=== PATIENT | female | born 1960 | race Caucasian/White ===

== ENCOUNTER 2016-10-03 10:01 | Emergency (ER) | payer BC ==
[2016-10-03 11:16] VITALS: BP 144/90
[2016-10-03] MEDS ORDERED: Albuterol/Ipratropium NEB.SOL* Albuterol 2.5 MG/Ipratropium 0.5 MG 3 ML INH ONE (11:44)
--- NOTE | 2016-10-03 12:44 | RAD ---
INDICATION: Cough. Wheezing. COMPARISON: None TECHNIQUE: PA and lateral dual-energy views were obtained. FINDINGS: Bones/Soft Tissues: There are no acute bony findings. Cardiomediastinal: The cardiomediastinal silhouette is normal. Lungs: There are no infiltrates. Pleura: There are no pleural effusions. Other: None IMPRESSION: NO ACTIVE DISEASE.
--- NOTE | 2016-10-03 14:03 | UC ---
Throat Pain/Nasal Morgan HPI - HPI Summary HPI Summary: FIVE DAYS OF COUGH CONGESTION WHEEZING, SINUS PRESSURE. AND THREE DAYS AGO COLD SORE BROKE OUT ON LEFT UPPER LIP. - History of Current Complaint Chief Complaint: UCRespiratory Stated Complaint: COUGH Time Seen by Provider: 10/03/16 11:32 Hx Obtained From: Patient Hx Last Menstrual Period: Perimenopausal Onset/Duration: Gradual Onset, Lasting Days, Still Present Severity: Moderate Pain Intensity: 0 Pain Scale Used: 0-10 Numeric Cough: Productive Associated Signs & Symptoms: Positive: Wheezing, Hoarseness, Sinus Discomfort, Nasal Discharge, Fever, Rash - COLD SORE LEFT SUPERIOR LIP - Epiglottits Risk Factors Epiglottis Risk Factors: Negative - Allergies/Home Medications Allergies/Adverse Reactions: Allergies Allergy/AdvReac Type Severity Reaction Status Date / Time No Known Allergies Allergy Verified 10/03/16 11:16 PMH/Surg Hx/FS Hx/Imm Hx Previously Healthy: Yes Endocrine History Of: Denies: Diabetes, Thyroid Disease, Hyperthyroidism, Hypothyroidism, Dyslipidemia Cardiovascular History Of: Denies: Cardiac Disorders, Hypertension, Pacemaker/ICD, Myocardial Infarction , Congestive Heart Failure, Atrial Fibrillation, Deep Vein Thrombosis, Bleeding Disorders Respiratory History Of: Reports: Bronchitis Denies: COPD, Asthma, Pneumonia, Pulmonary Embolism GI/ History Of: Denies: Gastroesophageal Reflux, Ulcer, Gastrointestinal Bleed, Gall Bladder Disease, Kidney Stones, Diverticulitis, Renal Disease, Urosepsis Neurological History Of: Denies: TIA, CVA, Dementia, Seizures, Migraine Psychological History Of: Reports: Anxiety Denies: Depression, Bipolar Disorder, Schizophrenia, Post Traumatic Stress Disorder Cancer History Of: Denies: Lung Cancer, Colorectal Cancer, Breast Cancer, Prostate Cancer, Cervical Cancer Other History Of: Negative For: HIV, Hepatitis B, Hepatitis C, Anticoagulant Therapy - Surgical History Surgical History: Yes Surgery Procedure, Year, and Place: BREAST REDUCTION. back surgery - Family History Known Family History: Positive: Respiratory Disease - FATHER HAS ASTHMA Negative: Hypertension - Social History Occupation: Employed Full-time Lives: With Family Alcohol Use: Occasionally Substance Use Type: None Smoking Status (MU): Former Smoker Type: Cigarettes Length of Time of Smoking/Using Tobacco: 10 Have You Smoked in the Last Year: No - Immunization History Most Recent Influenza Vaccination: fall 2015 Most Recent Tetanus Shot: utd Review of Systems Constitutional: Chills Skin: Other - LEFT SUPERIOR LIP COLD SORE Eyes: Negative ENT: Nasal Discharge Respiratory: Cough Cardiovascular: Negative Gastrointestinal: Negative Genitourinary: Negative Motor: Negative Neurovascular: Negative Musculoskeletal: Negative Neurological: Negative Psychological: Negative All Other Systems Reviewed And Are Negative: Yes Physical Exam Triage Information Reviewed: Yes Appearance: Well-Appearing, No Pain Distress, Well-Nourished Vital Signs: Initial Vital Signs Temp 98.1 F 10/03/16 11:07 Pulse 84 10/03/16 11:07 Resp 20 10/03/16 11:07 BP 144/90 10/03/16 11:07 Pulse Ox 99 10/03/16 11:07 Vital Signs Reviewed: Yes Eye Exam: Normal Eyes: Positive: Conjunctiva Clear ENT Exam: Normal ENT: Positive: Normal ENT inspection, Hearing grossly normal, TMs normal Dental Exam: Normal Neck exam: Normal Respiratory Exam: Normal Respiratory: Positive: Chest non-tender, Lungs clear, Normal breath sounds, No respiratory distress, No accessory muscle use, Wheezing Cardiovascular Exam: Normal Cardiovascular: Positive: RRR, No Murmur, Pulses Normal, Brisk Capillary Refill Abdominal Exam: Normal Abdomen Description: Positive: Nontender, No Organomegaly Musculoskeletal Exam: Normal Neurological Exam: Normal Psychological Exam: Normal Skin Exam: Normal Throat Pain/Nasal Course/Dx - Differential Dx/Diagnosis Differential Diagnosis/HQI/PQRI: Otitis Media, Pharyngitis, Sinusitis, URI Provider Diagnoses: SINUSITIS. BRONCHITIS WITH BRONCHOSPASM. COLD SORE LEFT SUPERIOR LIP Discharge - Discharge Plan Condition: Stable Disposition: HOME Prescriptions: DOXYcycline CAP(*) [DOXYcycline 100MG CAP(*)] 100 mg PO BID #20 cap ValACYclovir (*) [Valtrex 500 mg (*)] 500 mg PO BID #6 tab predniSONE TAB* [Deltasone TAB*] 10 mg PO DAILY #28 tab Patient Education Materials: Sinusitis (ED), Acute Bronchitis (ED), Oral Herpes Simplex Virus Infections (ED), Bronchospasm (ED) Referrals: Marcia Mahajan NP [Primary Care Provider] -
== END 2016-10-03 13:11 | disposition home or self-care (01) ==
LOC: UCEAST 10:01
DX: J40 Bronchitis, not specified as acute or chronic (principal); J98.01 Acute bronchospasm; J32.9 Chronic sinusitis, unspecified; B00.1 Herpesviral vesicular dermatitis; R03.0 Elevated blood-pressure reading, without diagnosis of hypertension; Z87.891 Personal history of nicotine dependence; Z82.5 Family history of asthma and other chronic lower respiratory diseases
CPT/HCPCS: 71020; 99212; A9270-GY; G0463

== ENCOUNTER 2017-08-03 09:33 | Emergency (ER) | payer BC ==
[2017-08-03 09:50] VITALS: BP 122/100
--- NOTE | 2017-08-03 10:20 | UC ---
Respiratory Complaint HPI - HPI Summary HPI Summary: Patient presents with an unremarkable past medical history. She presents today with complaints of six day onset fatigue, malaise, body aches. Furthermore she states she has been in bed since Friday with increased coughing, chest congestion. She denies any recent travel, ill contacts. Denies chest pain, dyspena, abdominal pain, nausea, vomiting, rash or joint pain. - History of Current Complaint Chief Complaint: UCRespiratory Stated Complaint: CONGESTION Time Seen by Provider: 08/03/17 10:03 Hx Obtained From: Patient Hx Last Menstrual Period: Perimenopausal ?: No Onset/Duration: Sudden Onset, Lasting Days Timing: Constant Character: Cough: Nonproductive Aggravating Factors: Nothing Alleviating Factors: Spontaneous Resolution Associated Signs And Symptoms: Positive: URI, Nasal Congestion, Sinus Discomfort - Risk Factors Pulmonary Embolism Risk Factors: Negative Cardiac Risk Factors: Negative Pseudomonas Risk Factors: Negative Tuberculosis Risk Factors: Negative - Allergies/Home Medications Allergies/Adverse Reactions: Allergies Allergy/AdvReac Type Severity Reaction Status Date / Time No Known Allergies Allergy Verified 08/03/17 09:45 Home Medications: Home Medications metFORMIN* [Glucophage 500 MG TAB *] 08/03/17 [History] PMH/Surg Hx/FS Hx/Imm Hx Previously Healthy: Yes Other History Of: Negative For: HIV, Hepatitis B, Hepatitis C, Anticoagulant Therapy - Surgical History Surgical History: Yes Surgery Procedure, Year, and Place: BREAST REDUCTION. back surgery - Family History Known Family History: Positive: Respiratory Disease - FATHER HAS ASTHMA Negative: Hypertension - Social History Occupation: Employed Full-time Lives: Alone Alcohol Use: Occasionally Substance Use Type: None Smoking Status (MU): Former Smoker Type: Cigarettes Length of Time of Smoking/Using Tobacco: 10 Have You Smoked in the Last Year: No - Immunization History Most Recent Influenza Vaccination: fall 2015 Most Recent Tetanus Shot: utd Review of Systems Constitutional: Fatigue Skin: Negative Eyes: Negative ENT: Nasal Discharge, Sinus Congestion, Sinus Pain/Tenderness Respiratory: Cough Cardiovascular: Negative Gastrointestinal: Negative Genitourinary: Negative Motor: Negative Neurovascular: Negative Musculoskeletal: Negative Neurological: Negative Psychological: Negative Is Patient Immunocompromised?: No All Other Systems Reviewed And Are Negative: Yes Physical Exam Triage Information Reviewed: Yes Appearance: Ill-Appearing Vital Signs: Initial Vital Signs Temp 97.2 F 08/03/17 09:46 Pulse 75 08/03/17 09:46 Resp 16 08/03/17 09:46 BP 122/100 08/03/17 09:46 Pulse Ox 98 08/03/17 09:46 Vital Signs Reviewed: Yes Eye Exam: Normal ENT: Positive: Pharyngeal erythema, Nasal congestion, Nasal drainage, Sinus tenderness Neck exam: Normal Neck: Positive: 1 Respiratory: Positive: No accessory muscle use, Rhonchi, Wheezing, Expiration Cardiovascular Exam: Normal Skin Exam: Normal UC Diagnostic Evaluation - Laboratory O2 Sat by Pulse Oximetry: 98 Respiratory Course/Dx - Course Course Of Treatment: Patient presents with six day onset generalized fatigue, malaise, persistent cough and wheezing with coughing. Influenza was negative. Clincial findings are consistent with acute bronchitis, and/or sinusitis. She is going to be treated with zpk, tessalon perles, and prednisone.I appreciate that the patient BP is elevated today with no history of HTN, I feel the elevation is in response to her illness and does not require any additional treatmet today. I discussed with her that she can anticpated to have cough up to 2 week following treatment, however her other symtpoms should improve and if they do not she should be rechecked in one week. She did verbalzied understanding and was in agreement with the discharge plan. - Differential Dx/Diagnosis Differential Diagnosis/HQI/PQRI: Bronchitis, Sinusitis Provider Diagnoses: sinusitis. bronchitis Discharge - Discharge Plan Condition: Stable Disposition: HOME Prescriptions: Azithromycin TAB* [Zithromax TAB (Z-DEJA) 250 mg #6 tabs] 250 mg PO DAILY #6 tab Benzonatate [TESSALON 200 MG CAP] 200 mg PO TID #30 cap predniSONE TAB* [Deltasone TAB*] 20 mg PO BID #10 tab Patient Education Materials: Acute Bronchitis (ED) Referrals: Alethea Irby MD [Primary Care Provider] -
== END 2017-08-03 10:30 | disposition home or self-care (01) ==
LOC: UCEAST 09:33
DX: J32.9 Chronic sinusitis, unspecified (principal); J40 Bronchitis, not specified as acute or chronic; Z79.84 Long term (current) use of oral hypoglycemic drugs; Z87.891 Personal history of nicotine dependence
CPT/HCPCS: 87502; 99212; G0463

== ENCOUNTER 2018-07-15 15:38 | Emergency (ER) | payer BC ==
[2018-07-15 17:29] VITALS: BP 136/88
--- NOTE | 2018-07-15 17:40 | UC ---
Respiratory Complaint HPI - HPI Summary HPI Summary: 57 y/o female presents to the urgent care c/o productive cough for the past 1.5 month. Pt reports she was Dx w/ Bronchitis a month ago at the [address] [place] [address] Urgent care and Rx ABX and inhaler, she felt better for 1 week after she finished medication. But a mild cough persisted. Now cough has worsen again for the past week. Her father recently and she has been under a lot of stress. Cough is producing a yellowish phlegm now and she feels fatigue since she hasn' t been able to sleep well. Pt denies fever, SOB, wheezing, SOB, chest pain, abdominal pain, N/V/D. - History of Current Complaint Chief Complaint: UCGeneralIllness Stated Complaint: COUGH Time Seen by Provider: 07/15/18 17:38 Hx Obtained From: Patient Hx Last Menstrual Period: menopause Onset/Duration: Gradual Onset, Lasting Weeks - 6-7 weeks, Still Present, Worse Since - last week Timing: Constant Severity Initially: Moderate Severity Currently: Moderate Pain Intensity: 2 Pain Scale Used: 0-10 Numeric Character: Cough: Productive, Sputum Description: - yellowish Aggravating Factors: Recumbent Position Alleviating Factors: Bronchodilator, OTC Meds Associated Signs And Symptoms: Positive: Chills, URI, Nasal Congestion, Sinus Discomfort. Negative: Dyspnea, Fever, Wheezing - Risk Factors Pulmonary Embolism Risk Factors: Negative Cardiac Risk Factors: Negative Pseudomonas Risk Factors: Negative Tuberculosis Risk Factors: Negative - Allergies/Home Medications Allergies/Adverse Reactions: Allergies Allergy/AdvReac Type Severity Reaction Status Date / Time No Known Allergies Allergy Verified 07/15/18 17:29 PMH/Surg Hx/FS Hx/Imm Hx Previously Healthy: Yes Endocrine History: Diabetes - Pre-DM II Other History Of: Negative For: HIV, Hepatitis B, Hepatitis C, Anticoagulant Therapy - Surgical History Surgical History: Yes Surgery Procedure, Year, and Place: BREAST REDUCTION. back surgery - Family History Known Family History: Positive: Respiratory Disease - FATHER HAS ASTHMA Negative: Hypertension - Social History Occupation: Employed Full-time Lives: With Family Alcohol Use: Occasionally Substance Use Type: None Smoking Status (MU): Former Smoker Type: Cigarettes Length of Time of Smoking/Using Tobacco: 10 Have You Smoked in the Last Year: No - Immunization History Most Recent Influenza Vaccination: fall 2015 Most Recent Tetanus Shot: utd Review of Systems All Other Systems Reviewed And Are Negative: Yes Constitutional: Positive: Chills, Fatigue Skin: Positive: Negative Eyes: Positive: Negative ENT: Positive: Negative Respiratory: Positive: Cough - productive cough w/ yellowish phlegm Cardiovascular: Positive: Negative Gastrointestinal: Positive: Negative Genitourinary: Positive: Negative Motor: Positive: Negative Neurovascular: Positive: Negative Musculoskeletal: Positive: Negative Neurological: Positive: Negative Psychological: Positive: Negative Is Patient Immunocompromised?: No Physical Exam - Summary Physical Exam Summary: Vital Signs Reviewed: Yes General: well developed, well nourished obese female sitting in the examining table w/o any apparent distress Eyes: Positive: Conjunctiva Clear - PERRLA, EOMI, fundi grossly normal ENT: Positive: Normal ENT inspection, Hearing grossly normal, Pharynx normal, Nasal congestion - edematous and erythematous nasal mucosa, Nasal drainage - yellowish drainage, TMs normal. Negative: Tonsillar swelling, Tonsillar exudate Neck: Positive: Supple, Nontender, No Lymphadenopathy Respiratory: no orthopnea or dyspnea. Able to speak in full sentences, no retractions or accessory muscle use, no tripod position, stridor, or head bobbing. Positive breath sounds bilaterally. B/L posterior upper lungs w/ scattered rhonchi. no wheezing, no crackles or rales. Cardiovascular: Positive: RRR, No Murmur, Pulses Normal, Brisk Capillary Refill Abdomen Description: Positive: Nontender, No Organomegaly, Soft. Negative: CVA Tenderness (R), CVA Tenderness (L) Bowel Sounds: Positive: Present Musculoskeletal Exam: Normal Musculoskeletal: Positive: Strength Intact, ROM Intact, No Edema Neurological Exam: Normal Psychological Exam: Normal Skin Exam: Normal Triage Information Reviewed: Yes Vital Signs: Initial Vital Signs Temp 97.7 F 07/15/18 17:26 Pulse 71 07/15/18 17:26 Resp 16 07/15/18 17:26 BP 136/88 07/15/18 17:26 Pulse Ox 97 07/15/18 17:26 Diagnostic Evaluation - Laboratory O2 Sat by Pulse Oximetry: 97 Respiratory Course/Dx - Course Course Of Treatment: 57 y/o female presents to the urgent care c/o productive cough for the past 1.5 month. Pt reports she was Dx w/ Bronchitis a month ago at the [address] [place] [address] Urgent care and Rx ABX and inhaler, she felt better for 1 week after she finished medication. But a mild cough persisted. Now cough has worsen again for the past week. Her father recently and she has been under a lot of stress. Cough is producing a yellowish phlegm now and she feels fatigue since she hasn't been able to sleep well. Pt denies fever, SOB, wheezing , SOB, chest pain, abdominal pain, N/V/D. Pt w/ B/L posterior lungs w/ scattered rhonchi on examination. O2Sat:97%. Chest X-ray ordered, Impression:No acute Cardiopulmonary disease observed. Pt with Acute bronchitis on examination. Pt Rx Doxyycline PO and Tessalon Tabs and advised to continue using Albuterol inhaler to alleviate bronchospasm. Pt advised to increase fluid intake and eat well. if not improvement or worsening of symptoms to return to the urgent care or f/u with PCP for further management. pt understood and agreed with plan of care. - Differential Dx/Diagnosis Differential Diagnosis/HQI/PQRI: Asthma, Bronchitis, Exacerbation Of COPD, Lower Resp Infection, Sinusitis, Other - pneumonia Provider Diagnosis: Acute bronchitis, Cough Discharge - Sign-Out/Discharge Documenting (check all that apply): Patient Departure - d/c home All imaging exams completed and their final reports reviewed: Yes - Discharge Plan Condition: Stable Disposition: HOME Prescriptions: Benzonatate CAP* [Tessalon 100 MG CAP*] 100 mg PO TID PRN #21 cap PRN Reason: Cough DOXYcycline CAP(*) [DOXYcycline 100MG CAP(*)] 100 mg PO BID #20 cap Patient Education Materials: Acute Bronchitis (ED) Referrals: Alethea Irby MD [Primary Care Provider] - 1 Week Additional Instructions: 1-Please take full course of antibiotic to avoid resistance. 2-Take Tessalon PO tabs as directed and use the albuterol inhaler to alleviate cough. Increase fluid intake, rest and eat well. 3- If symptoms do not improve or worsen or your develop SOB with fever and severe wheezing please go immediately to the ER further evaluation and treatment. 4- F/u with your PCP in 1 week for further management if not improvement of symptoms - Billing Disposition and Condition Condition: STABLE Disposition: Home
== END 2018-07-15 18:20 | disposition home or self-care (01) ==
LOC: UCEAST 15:38
DX: J20.9 Acute bronchitis, unspecified (principal); Z87.891 Personal history of nicotine dependence
CPT/HCPCS: 71046; 99212; G0463

== ENCOUNTER 2019-01-24 10:38 | Emergency (ER) | payer BC ==
[2019-01-24 11:01] VITALS: BP 124/85
--- NOTE | 2019-01-24 11:35 | UC ---
Respiratory Complaint HPI - HPI Summary HPI Summary: started coughing over a week ago. hsa not gotten better with OTC cough syrup. last night she coughed so much she couldn't sleep, describes dry cough, no mucous, no fever or chills, throat hurts because of cough, burning in chest with cough, otherwise no CP - History of Current Complaint Chief Complaint: UCRespiratory Stated Complaint: URI Time Seen by Provider: 01/24/19 11:18 Hx Obtained From: Patient Hx Last Menstrual Period: menopause ?: No Onset/Duration: Gradual Onset Severity Initially: Mild Severity Currently: Moderate Pain Intensity: 6 Character: Cough: Nonproductive Aggravating Factors: Deep Breaths, Recumbent Position Alleviating Factors: Nothing Associated Signs And Symptoms: Negative: Dyspnea, Fever, Chills, Hemoptysis, Nasal Congestion - Allergies/Home Medications Allergies/Adverse Reactions: Allergies Allergy/AdvReac Type Severity Reaction Status Date / Time No Known Allergies Allergy Verified 01/24/19 11:01 PMH/Surg Hx/FS Hx/Imm Hx Previously Healthy: Yes Endocrine History: Diabetes Psychological History: Depression Other History Of: Negative For: HIV, Hepatitis B, Hepatitis C, Anticoagulant Therapy - Surgical History Surgical History: Yes Surgery Procedure, Year, and Place: BREAST REDUCTION. back surgery - Family History Known Family History: Positive: Respiratory Disease - FATHER HAS ASTHMA Negative: Hypertension - Social History Occupation: Employed Full-time Lives: With Family Alcohol Use: Weekly Substance Use Type: None Smoking Status (MU): Former Smoker Type: Cigarettes Length of Time of Smoking/Using Tobacco: 10 Have You Smoked in the Last Year: No - Immunization History Most Recent Influenza Vaccination: fall 2015 Most Recent Tetanus Shot: utd Review of Systems All Other Systems Reviewed And Are Negative: Yes Constitutional: Positive: Negative Skin: Positive: Negative. Negative: Rash ENT: Positive: Sore Throat - only during cough. Negative: Ear Ache, Sinus Congestion Respiratory: Positive: Cough. Negative: Shortness Of Breath Cardiovascular: Positive: Negative Gastrointestinal: Positive: Negative. Negative: Abdominal Pain, Diarrhea, Nausea Neurological: Positive: Negative. Negative: Headache Psychological: Positive: Negative Is Patient Immunocompromised?: No Physical Exam Triage Information Reviewed: Yes Appearance: Well-Appearing, No Pain Distress, Well-Nourished Vital Signs: Initial Vital Signs Temp 98.5 F 01/24/19 10:58 Pulse 85 01/24/19 10:58 Resp 18 01/24/19 10:58 BP 124/85 01/24/19 10:58 Pulse Ox 97 01/24/19 10:58 Vital Signs Reviewed: Yes Eyes: Positive: Conjunctiva Clear ENT Exam: Normal ENT: Positive: Pharynx normal, TMs normal. Negative: Nasal congestion, Nasal drainage Neck: Positive: No Lymphadenopathy Respiratory: Positive: Lungs clear, Other: - dry deep cough with deep breaths, no evidence SOB Cardiovascular Exam: Normal Cardiovascular: Positive: RRR Neurological Exam: Normal Psychological Exam: Normal Skin Exam: Normal Respiratory Course/Dx - Differential Dx/Diagnosis Differential Diagnosis/HQI/PQRI: Asthma, Bronchitis, Lower Resp Infection, Sinusitis Provider Diagnosis: Bronchitis Discharge - Sign-Out/Discharge Documenting (check all that apply): Patient Departure All imaging exams completed and their final reports reviewed: No Studies - Discharge Plan Condition: Good Disposition: HOME Prescriptions: Azithromycin TAB* [Zithromax TAB (Z-DEJA) 250 mg #6 tabs] 2 tab PO .TODAY, THEN 1 DAILY #1 deja Benzonatate 200 mg PO TID PRN #15 capsule PRN Reason: Cough Patient Education Materials: Acute Bronchitis (ED) Referrals: Alethea Irby MD [Primary Care Provider] - 2 Days (if no improvement) Additional Instructions: rest and drink plenty of fluids Start zithromax as prescribed use tesselon cough capsules as prescribed use ibuprofen 600-800mg every 6-8hours for pain and fever NYquil over the counter at bedtime to help sleep - Billing Disposition and Condition Condition: GOOD Disposition: Home
== END 2019-01-24 11:48 | disposition home or self-care (01) ==
LOC: UCEAST 10:38
DX: J40 Bronchitis, not specified as acute or chronic (principal); E11.9 Type 2 diabetes mellitus without complications; Z87.891 Personal history of nicotine dependence
CPT/HCPCS: 99212; G0463

== ENCOUNTER 2019-10-05 13:45 | Emergency (ER) | payer BC ==
[2019-10-05 14:47] VITALS: BP 145/96
--- NOTE | 2019-10-05 15:48 | UC ---
Back Pain HPI - HPI Summary HPI Summary: 58-year-old female presents with complaints of left lower back/buttocks and left hip pain. States 3 days ago she slipped and fell into a pile of snow and ice landing on her left buttocks. Describes pain as a constant ache that worsens with any movement. Nonradiating. Has taken ibuprofen with good relief in the pain. She has been able to walk and ambulate without difficulty although does note discomfort. Denies numbness, tingling, weakness of the lower extremities, loss of bowel or bladder control. - History of Current Complaint Chief Complaint: UCGeneralIllness Stated Complaint: FELL ON ICE, HAS LOWER BACK PAIN Time Seen by Provider: 10/05/19 15:09 Hx Obtained From: Patient Hx Last Menstrual Period: menopause Pain Intensity: 6 - Allergies/Home Medications Allergies/Adverse Reactions: Allergies Allergy/AdvReac Type Severity Reaction Status Date / Time No Known Allergies Allergy Verified 10/05/19 14:47 Home Medications: Home Medications Escitalopram Oxalate [Lexapro 10 mg] 10 mg PO DAILY 10/05/19 [History Confirmed 10/05/19] PMH/Surg Hx/FS Hx/Imm Hx Previously Healthy: Yes Psychological History: Depression Other History Of: Negative For: HIV, Hepatitis B, Hepatitis C, Anticoagulant Therapy - Surgical History Surgical History: Yes Surgery Procedure, Year, and Place: BREAST REDUCTION. back surgery - Family History Known Family History: Positive: Respiratory Disease - FATHER HAS ASTHMA Negative: Hypertension - Social History Occupation: Retired Lives: With Family Alcohol Use: Weekly Substance Use Type: None Smoking Status (MU): Former Smoker Type: Cigarettes Length of Time of Smoking/Using Tobacco: 10 Have You Smoked in the Last Year: No - Immunization History Most Recent Influenza Vaccination: fall 2015 Most Recent Tetanus Shot: utd Review of Systems All Other Systems Reviewed And Are Negative: Yes Constitutional: Negative: Fever, Chills Skin: Positive: Negative Respiratory: Positive: Negative Cardiovascular: Positive: Negative Gastrointestinal: Positive: Negative Genitourinary: Positive: Negative Musculoskeletal: Positive: Other: - See HPI Neurological/Mental Status: Negative: Weakness, Paresthesia, Numbness Is Patient Immunocompromised?: No Physical Exam - Summary Physical Exam Summary: GENERAL APPEARANCE: Alert and cooperative overweight female who appears to be in no acute distress. CARDIAC: Normal S1 and S2. No S3, S4 or murmurs. Rhythm is regular. There is no peripheral edema, cyanosis or pallor. Extremities are warm and well perfused. Capillary refill is less than 2 seconds. Peripheral pulses intact. LUNGS: Clear to auscultation without rales, rhonchi, wheezing or diminished breath sounds. ABDOMEN: Positive bowel sounds. Soft, nondistended, nontender. No guarding or rebound. No masses or hepatosplenomegally. MUSKULOSKELETAL: ROM intact to all extremities. No joint erythema or tenderness. Normal muscular development. Limping gait. BACK: No midline spinal deformity or tenderness. Mild soft tissue tenderness of the left lower back and buttocks without muscular spasm noted. EXTREMITIES: Mild tenderness to the left hip without gross deformity or ecchymosis. Full ROM. Circulation and sensation intact. NEUROLOGICAL: Strength and sensation symmetric and intact to lower extremities. SKIN: Skin normal color, texture and turgor with no lesions or eruptions. Triage Information Reviewed: Yes Vital Signs: Initial Vital Signs Temp 97.2 F 10/05/19 14:42 Pulse 73 10/05/19 14:42 Resp 16 10/05/19 14:42 BP 145/96 10/05/19 14:42 Pulse Ox 98 10/05/19 14:42 Vital Signs Reviewed: Yes Diagnostics - Radiology No standard instances Radiology Interpretation Completed By: Radiologist Summary of Radiographic Findings: Order Information: HIP LEFT 2 VIEWS AND PELVIS. INDICATION: Left hip injury. COMPARISON: There are no relevant prior studies available for comparison. TECHNIQUE: An AP view of the pelvis and frontal and lateral views of the left hip were obtained. FINDINGS: The bones are in normal alignment. No fracture is seen. There is mild to moderate osteoarthritic change in the left hip. IMPRESSION: NO EVIDENCE FOR FRACTURE. Order Information: SP LUMBARSACRAL 4+ VWS. INDICATION: Back pain status post fall. COMPARISON: Appear seated is made with a prior study from February 29, 2008. TECHNIQUE: 5 views of the lumbar spine were obtained including lateral, oblique , AP and a coned-down lateral view of the lumbar sacral junction. FINDINGS: The vertebra are in normal alignment. No fracture is seen. There is mild to moderate diffuse degenerative disc disease. IMPRESSION: NO EVIDENCE FOR FRACTURE. Back Pain Course/Dx - Course Course Of Treatment: 58-year-old female presents with complaints of left lower back/buttocks and left hip pain. States 3 days ago she slipped and fell into a pile of snow and ice landing on her left buttocks. Describes pain as a constant ache that worsens with any movement. Nonradiating. Has taken ibuprofen with good relief in the pain. She has been able to walk and ambulate without difficulty although does note discomfort. Denies numbness, tingling, weakness of the lower extremities, loss of bowel or bladder control. Mildly hypertensive otherwise vital signs stable. Patient had no midline spinal deformity or tenderness. Mild soft tissue tenderness of the left lower back and buttocks without muscular spasm noted. Mild tenderness to the left hip without gross deformity or ecchymosis. Full ROM. Circulation and sensation intact. Remainder of exam was unremarkable. X-ray of the LS-spine and left hip showed no acute fractures. Reviewed results with the patient. Recommending conservative treatment for a low back strain versus contusion. She is to follow-up with her primary care provider in 3-5 days if symptoms are not improving. Anticipatory guidance and warning symptoms reviewed with the patient. Verbalizes understanding and agrees with plan of care. - Differential Dx/Diagnosis Differential Diagnosis/HQI/PQRI: Fracture, Herniated Disc, Strain, Other - Contusion Provider Diagnosis: Low back strain Discharge ED - Sign-Out/Discharge Documenting (check all that apply): Patient Departure All imaging exams completed and their final reports reviewed: Yes - Discharge Plan Condition: Stable Disposition: HOME Patient Education Materials: Low Back Strain (ED), Contusion in Adults (ED) Referrals: Alethea Irby MD [Primary Care Provider] - 3 Days (If no improvement in symptoms.) Additional Instructions: The x-ray of the lower back and left hip were negative for any fracture. Your symptoms are likely a low back strain and/or contusion. Apply ice, heat, or alternate ice then heat to the affected area for 15-20 minutes at least 4 times a day to help with the pain and swelling. Take acetaminophen (Tylenol) or ibuprofen (Advil, Motrin) according to directions as needed for pain. Follow up with your primary care provider in 3-5 days if symptoms do not improve. Seek immediate medical attention if you have severe pain not managed with pain medication, you are unable to walk or bear any weight, develop numbness or tingling in the legs, you lose control of your bowel or bladder,or have any worsening of symptoms. - Billing Disposition and Condition Condition: STABLE Disposition: Home
== END 2019-10-05 16:25 | disposition home or self-care (01) ==
LOC: UCEAST 13:45
DX: S39.012A Strain of muscle, fascia and tendon of lower back, initial encounter (principal); F32.9 Major depressive disorder, single episode, unspecified; Z79.899 Other long term (current) drug therapy; Z87.891 Personal history of nicotine dependence; W00.2XXA Other fall from one level to another due to ice and snow, initial encounter; Y92.9 Unspecified place or not applicable
CPT/HCPCS: 72110; 99211; G0463